=== PATIENT | male | born 1990 | race Two or more races ===

== ENCOUNTER 2024-03-07 00:14 | Emergency (ER) | payer BC ==
[~2024-03-07] VITALS: Ht 170.2 cm; Wt 90.3 kg
[2024-03-07] MEDS: ibuprofen tablet 400 MG TABLET PO ONE (00:58)
[2024-03-07] MEDS: acetaminophen 325mg tablet PO ONE (00:58)
[2024-03-07] MEDS ORDERED: NIRM1TAB7 PO (01:52)
[2024-03-07 02:08] VITALS: BP 125/79; PULSE 73; RESP 16; TEMP 99; O2SAT 96
== END 2024-03-07 02:11 | disposition home or self-care (01) ==
LOC: ER 00:15
DX: U07.1 COVID-19 (principal)
CPT/HCPCS: 36415; 87811; 99283